=== PATIENT | female | born 2000 | race Hispanic/Latino ===

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

== ENCOUNTER 2021-11-15 07:40 | Inpatient (IN) | payer OTHER, BC ==
[~2021-11-15] VITALS: Ht 160 cm; Wt 97.1 kg
[~2021-11-15 07:40] MED LIST changes: +HYDROCODON-ACE1 EA11 PO; +ONDANSETRON ODT8 MG PO
--- NOTE | 2021-11-15 12:49 | PR ---
[facility] [address] [place], [place] [address] Signed Progress Notes IP Datetime Report Generated by CPN: 11/15/2021 12:49 PROGRESS NOTES: [id number] Impression: Reassuring Heart Rate Procedures: Sterile Vag Exam Plan: Augmentation VITAL SIGNS: [id number] Vital Signs: Reviewed; Within Normal Limits EXAM: [id number] Dilatation: 1.0 Effacement: 25 Station: Unable to assess presenting part, high Contractions: occ MEMBRANES: [id number] Amniotic Fluid Color: Clear Comments: Pt still very comfortable and feels occ pressure. Cervix cannot be palpated as presenting part is very high. U/S repeated and fetus is VTX. Will begin pit augment now as she has had SROM for a little over 6 hrs at this time w/o labor. Her exam is very concerning given the extremely high station of the VTX, however. It is unclear whether labor will allow for vaginal delivery. FETUS A: [id number] FHR Baseline: 140 Variability: Moderate 6-25bpm Accelerations: 15X15 Decelerations: None FHR Category: Category I Presentation: Vertex Comments on Fetus A: No evidence of metabolic acidosis FETUS B: [id number] Signing Physician: Cher Marte MD Copies: ~ *Electronically Signed* 11/15/21 1249 CHER MARTE MD PATIENT NAME: DARSHAN WALLRIO PROGRESS NOTE DATE OF : 01 PHYSICIAN: CHER MARTE MD RPT #: [id number] REPORT IS CONFIDENTIAL AND NOT TO BE RELEASED WITHOUT AUTHORIZATION
--- NOTE | 2021-11-15 15:49 | PR ---
[facility] [address] [facility] [place] [place] [address] Signed Progress Notes IP Datetime Report Generated by CPN: 11/15/2021 15:48 PROGRESS NOTES: [id number] Impression: Reassuring Heart Rate Procedures: Sterile Vag Exam Plan: Continue Present Management VITAL SIGNS: [id number] Vital Signs: Reviewed; Within Normal Limits EXAM: [id number] Dilatation: 1.0 Effacement: 50 Station: -3 Contractions: occ MEMBRANES: [id number] Amniotic Fluid Color: Clear Comments: Becoming uncomfortable. Cervix can now be evaluated but baby still very high. Will continue. FETUS A: [id number] FHR Baseline: 140 Variability: Moderate 6-25bpm Accelerations: 15X15 Decelerations: None FHR Category: Category I Presentation: Vertex Comments on Fetus A: No evidence of metabolic acidosis FETUS B: [id number] Signing Physician: Cher Marte MD Copies: ~ *Electronically Signed* 11/15/21 1548 CHER MARTE MD PATIENT NAME: DARSHAN WALL NEY PROGRESS NOTE DATE OF : 01 PHYSICIAN: CHER MARTE MD RPT #: [id number] REPORT IS CONFIDENTIAL AND NOT TO BE RELEASED WITHOUT AUTHORIZATION
--- NOTE | 2021-11-15 19:52 | PR ---
[facility] [address] [facility] [place], [place] [address] Signed Progress Notes IP Datetime Report Generated by CPN: 11/15/2021 19:51 PROGRESS NOTES: [id number] Impression: Normal Progression of Labor Procedures: Intrauterine Pressure Catheter; Scalp Electrode Plan: Continue Present Management Other Plans: position changes VITAL SIGNS: [id number] Vital Signs: Reviewed; Within Normal Limits EXAM: [id number] Dilatation: 1.0 Effacement: 50 Station: -3 Contractions: occ MEMBRANES: [id number] Amniotic Fluid Color: Clear Comments: Slow progress. Will require very close observation of FHTs though last decel was with placement of the IUPC and FSE. Will dose pitocin according to her contraction pattern. FETUS A: [id number] FHR Baseline: 140 Variability: Moderate 6-25bpm Accelerations: 15X15 Decelerations: None FHR Category: Category I Presentation: Vertex Comments on Fetus A: No evidence of metabolic acidosis FETUS B: [id number] Signing Physician: Cher Marte MD Copies: ~ *Electronically Signed* 11/15/211950 CHER MARTE MD PATIENT NAME: DARSHAN WALL PROGRESS NOTE DATE OF : 01 PHYSICIAN: CHER MARTE MD RPT #: [id number] REPORT IS CONFIDENTIAL AND NOT TO BE RELEASED WITHOUT AUTHORIZATION
--- NOTE | 2021-11-15 20:09 | PR ---
[facility] [address] [place], [place] [address] Signed Progress Notes IP Datetime Report Generated by BULL: 11/15/2021 20:09 PROGRESS NOTES: [id number] Impression: Non-reassuring Heart Rate Procedures: Intrauterine Pressure Catheter; Scalp Electrode Other Procedures: stop pit Plan: Anesthesia Consult Other Plans: position changes VITAL SIGNS: N7563006 Vital Signs: Reviewed; Within Normal Limits EXAM: [id number] Dilatation: 2.0 Effacement: 80 Station: -3 Contractions: occ MEMBRANES: [id number] Amniotic Fluid Color: Clear Comments: Variability still present but with lates. She is sonu strongly with IUPC as well as very frequently. Will stop pit and continue close observation. She desires an epidural and will place this as well. Continued observation of status is needed. FETUS A: [id number] FHR Baseline: 140 Variability: Moderate 6-25bpm Accelerations: 15X15 Decelerations: None FHR Category: Category I Presentation: Vertex Comments on Fetus A: No evidence of metabolic acidosis FETUS B: [id number] Signing Physician: Cher Marte MD Copies: ~ *Electronically Signed* 11/15/212008 CHER MARTE MD PATIENT NAME: DARSHAN WALL PROGRESS NOTE DATE OF : 01 PHYSICIAN: CHER MARTE MD RPT #: [id number] REPORT IS CONFIDENTIAL AND NOT TO BE RELEASED WITHOUT AUTHORIZATION
--- NOTE | 2021-11-15 20:28 | PR ---
[facility] [address] [facility] [place], [place] [address] Signed Progress Notes IP Datetime Report Generated by BULL: 11/15/2021 20:28 PROGRESS NOTES: [id number] Impression: Reassuring Heart Rate Procedures: Epidural Placement Other Procedures: stop pit Plan: Anesthesia Consult Other Plans: position changes VITAL SIGNS: I6160209 Vital Signs: Reviewed; Within Normal Limits EXAM: R0469945 Dilatation: 2.0 Effacement: 80 Station: -3 Contractions: occ MEMBRANES: [id number] Amniotic Fluid Color: Clear Comments: status much improved after stopping pit augment and dose of sub Q terb. Will place epidural now. After recovery, will restart pit at beginning to see how the baby will tolerate labor. FETUS A: [id number] FHR Baseline: 140 Variability: Moderate 6-25bpm Accelerations: 15X15 Decelerations: None FHR Category: Category I Presentation: Vertex Comments on Fetus A: No evidence of metabolic acidosis FETUS B: [id number] Signing Physician: Cher Marte MD Copies: ~ *Electronically Signed* 11/15/212027 CHER MARTE MD PATIENT NAME: DARSHAN WALL PROGRESS NOTE DATE OF : 01 PHYSICIAN: CHER MARTE MD RPT #: [id number] REPORT IS CONFIDENTIAL AND NOT TO BE RELEASED WITHOUT AUTHORIZATION
--- NOTE | 2021-11-15 21:15 | PR ---
[facility] [address] [facility] [place], [place] [address] Signed Progress Notes IP Datetime Report Generated by CPN: 11/15/2021 21:14 PROGRESS NOTES: [id number] Impression: Reassuring Heart Rate Procedures: Sterile Vag Exam Other Procedures: stop pit Plan: Continue Present Management Other Plans: position changes VITAL SIGNS: Y0471564 Vital Signs: Reviewed; Within Normal Limits EXAM: R1156053 Dilatation: 2.0 Effacement: 80 Station: -3 Contractions: occ MEMBRANES: [id number] Amniotic Fluid Color: Clear Comments: Comfortable after epidural. status improved after stopping pit and subq terb. Contraction pattern appears adequate currently but augmentation may be needed. Will continue close observation. FETUS A: [id number] FHR Baseline: 140 Variability: Moderate 6-25bpm Accelerations: 15X15 Decelerations: None FHR Category: Category I Presentation: Vertex Comments on Fetus A: No evidence of metabolic acidosis FETUS B: [id number] Signing Physician: Cher Marte MD Copies: ~ *Electronically Signed* 11/15/212113 CHER MARTE MD PATIENT NAME: DARSHAN WALL PROGRESS NOTE DATE OF : 01 PHYSICIAN: CHER MARTE MD RPT #: [id number] REPORT IS CONFIDENTIAL AND NOT TO BE RELEASED WITHOUT AUTHORIZATION
--- NOTE | 2021-11-16 05:56 | PR ---
[facility] [address] [place], [place] [address] Signed Progress Notes IP Datetime Report Generated by BULL: 11/16/2021 05:56 PROGRESS NOTES: [id number] Impression: Non-reassuring Heart Rate Procedures: Sterile Vag Exam Other Procedures: stop pit Plan: Continue Present Management Other Plans: stop pit, subq terb VITAL SIGNS: Y4434599 Vital Signs: Reviewed; Within Normal Limits EXAM: [id number] Dilatation: 4.0 Effacement: 90 Station: -2 Contractions: occ MEMBRANES: T2122506 Amniotic Fluid Color: Clear Comments: Has made slow progress but has been having recurrent lates without response to changes in position. Pit now stopped (though has been only at 4) and will give subq terb to allow for recovery. If this is not sufficient, will proceed with C/S. FETUS A: [id number] FHR Baseline: 140 Variability: Moderate 6-25bpm Accelerations: 15X15 Decelerations: None FHR Category: Category I Presentation: Vertex Comments on Fetus A: No evidence of metabolic acidosis FETUS B: [id number] Signing Physician: Cher Marte MD Copies: ~ *Electronically Signed* 11/16/21 0556 CHER MARTE MD PATIENT NAME: DARSHAN WALL PROGRESS NOTE DATE OF : 01 PHYSICIAN: CHER MARTE MD RPT #: [id number] REPORT IS CONFIDENTIAL AND NOT TO BE RELEASED WITHOUT AUTHORIZATION
--- NOTE | 2021-11-16 06:59 | PR ---
[facility] [address] [place], [place] [address] Signed Progress Notes IP Datetime Report Generated by CPN: 11/16/2021 06:59 PROGRESS NOTES: [id number] Impression: Non-reassuring Heart Rate Procedures: Sterile Vag Exam Other Procedures: stop pit Plan: Deliver- Section Other Plans: stop pit, subq terb Informed Consent Obtain: Section Delivery VITAL SIGNS: [id number] Vital Signs: Reviewed; Within Normal Limits EXAM: [id number] Dilatation: 4.0 Effacement: 90 Station: -2 Contractions: occ MEMBRANES: [id number] Amniotic Fluid Color: Clear Comments: She has continued to have recurrent decels with her contractions. She is now off pit and has received terb and again has had decels. I am unable to develop an adequate contraction pattern to bring on a vaginal delivery. I feel is indicated at this time. PARQ done for C/S. FETUS A: [id number] FHR Baseline: 140 Variability: Moderate 6-25bpm Accelerations: 15X15 Decelerations: None FHR Category: Category I Presentation: Vertex Comments on Fetus A: No evidence of metabolic acidosis FETUS B: [id number] Signing Physician: Cher Marte MD Copies: ~ *Electronically Signed* 11/16/21 0659 CHER MARTE MD PATIENT NAME: DARSHAN WALLRIO PROGRESS NOTE DATE OF : 01 PHYSICIAN: CHER MARTE MD RPT #: [id number] REPORT IS CONFIDENTIAL AND NOT TO BE RELEASED WITHOUT AUTHORIZATION
--- NOTE | 2021-11-16 08:44 | NUR ---
11/16/21 0844 Naty Ross 0834: PT IS BROUGHT TO ROOM 105 FOR RECOVERY. DAD AND BABY IN THE ROOM UPON ARRIVAL. PT IS AWAKE WITH NO COMPLAINTS OF PAIN OR NAUSEA.
--- NOTE | 2021-11-17 07:46 | PR ---
[facility] [address] [facility] [place], [place] [address] Signed PP Progress Notes Datetime Report Generated by CPLori: 11/17/2021 07:45 SUBJECTIVE: [id number] Pain: Within Normal Limits Nausea/Vomiting: Denies Flatus: No Vital Signs: [id number] Vital Signs: Reviewed; Within Normal Limits Cardiovascular: Normal Respiratory: Normal Abdomen/Uterus: Abnormal Lochia: Normal Vulva/Perineum: Not Done Breasts: Not Done CVA Tenderness: Not Done Extremities: Normal Incision: Normal Progress: Abnormal Exam Comments: Abdomen with active BS. Fundus firm, NT @ U-1. H/H 8.6/26.5, WBC 7.5, plat 131k IMPRESSION/PLAN/PROCEDURES: [id number] Impression: Normal Progression; Difficulties Other Impression: anemia Other Plans: ambulate, shower Progress Notes: Doing well. Will increase ambulation and work on breast feeding. Signing Physician: Cher Marte MD Copies: ~ *Electronically Signed* 11/17/21 0745 CHER MARTE MD PATIENT NAME: NIR WALLOSIEL BREWSTER PROGRESS NOTE DATE OF : 01 PHYSICIAN: CHER MARTE MD RPT #: [id number] REPORT IS CONFIDENTIAL AND NOT TO BE RELEASED WITHOUT AUTHORIZATION
--- NOTE | 2021-11-17 17:49 | OR ---
[facility] [address] [place], [place] [address] Signed DATE OF OPERATION: 11/16/2021 SURGEON: Cher Marte MD PET FOOD DEBONER: Tammy Reddy D.O. PREOPERATIVE DIAGNOSES: 1. Term . 2. Premature rupture of the membranes. 3. Prolonged rupture of the membranes. 4. Non-reassuring heart rate. 5. Persistent posterior presentation. 6. Placental abruption. POSTOPERATIVE DIAGNOSES: 1. Term . 2. Premature rupture of the membranes. 3. Prolonged rupture of the membranes. 4. Non-reassuring heart rate. 5. Persistent posterior presentation. 6. Placental abruption. 7. Delivered. PROCEDURE: Primary section with low segment transverse uterine incision. ANESTHESIA: Epidural. ESTIMATED BLOOD LOSS: 600 mL. DRAINS: Waller catheter. INDICATIONS AND FINDINGS: The patient is a 21-year-old female, 2, para 0, SAB 1, who presented at 39 weeks with rupture of membranes on 11/15/21. She did not develop any labor after rupture had occurred over 6 hours and Pitocin augmentation was begun. With the Electronically Signed By: CHER MARTE MD 11/17/21 1749 PATIENT NAME: DARSHAN WALL OPERATIVE REPORT DATE OF : 01 REPORT #: [id number] PHYSICIAN: CHER MARTE MD PCP: MATT PIMENTEL PA-C REPORT IS CONFIDENTIAL AND NOT TO BE RELEASED WITHOUT AUTHORIZATION [facility] [address] [facility] [place], [place] [address] Signed development of more regular contractions, some cervical change did occur, but she also had episodes of recurrent late decelerations as well as variable decelerations. This required Pitocin to be discontinued twice as well as the needing subcu terbutaline twice to decrease her contractions and allow for resuscitation. After she had been ruptured for over 24 hours, she had developed recurrent late decelerations, which were poorly responsive to any position changes. The dose was again discontinued and she did receive subQ terb with improvement in status, but it was felt that as she had made minimal change from 1 to 4 cm over the previous 24 hrs that delivery was not imminent and as the fetus did not tolerate contractions, it was unlikely she would be successful in having a vaginal delivery. section was recommended. She was consented and taken to the operating room where she was delivered of a little girl via lower segment transverse uterine incision from the ROP position with Apgars 2/7 and 9. There was a tight nuchal cord at delivery. On entry to the uterus there was a clot as well as meconium. She had a probable abruption. The uterus, tubes, and ovaries were otherwise normal. DESCRIPTION OF PROCEDURE: The patient was prepped and draped in the supine position. A Pfannenstiel skin incision was made and carried down through the fascia. The incision was extended laterally. The inferior and superior fascial flaps were then created. The muscles were bluntly divided and the peritoneum opened bluntly and the incision extended. The Hardy retractor was placed. The uterine incision was made at the upper aspect of the peritoneal reflection. The baby was delivered with the above findings and handed off to the pediatric staff in attendance. The placenta was removed manually and the uterus explored with a lap tape assuring no remaining fragments. The edges of the incision were identified and the uterus was closed in 2 layers using 0-Monocryl. The first layer was a running locking stitch and the second was a vertical imbricating stitch. Bleeding points on the peritoneum were controlled with cautery. The abdomen was then irrigated and inspected and good hemostasis was noted. The Hardy retractor was removed. The peritoneum identified. The peritoneum was closed with running suture of 3-0 Vicryl. The muscles were brought together with interrupted sutures of 0-Vicryl. Bleeding points were controlled on the muscle with cautery. There was a raw area on the inferior fascial flap at the very base, and this was controlled with cautery as well. Because of this raw area, Laureen was placed on the muscles to aid in hemostasis. The fascia was closed from each angle to the midline with a running suture of 0-Vicryl. The subQ space was irrigated and bleeding points were controlled with cautery. The subQ space was closed with interrupted sutures of 3-0 Vicryl. The skin was closed with alfonso. All sponge and needle counts were correct. She tolerated the procedure well and was taken to the recovery room in good condition. Electronically Signed By: CHER MARTE MD 11/17/21 6574 PATIENT NAME: DARSHAN WALL OPERATIVE REPORT DATE OF : 01 REPORT #: [id number] PHYSICIAN: CHER MARTE MD PCP: MATT PIMENTEL PA-C REPORT IS CONFIDENTIAL AND NOT TO BE RELEASED WITHOUT AUTHORIZATION [address] [address] Signed Cher Marte MD PJW/MODL /[id number] cc: Tammy Reddy DO Copies: TAMMY REDDY DO ~ Electronically Signed By: CHER MARTE MD 11/17/21 1749 PATIENT NAME: DARSHAN WALL NEY OPERATIVE REPORT DATE OF : 01 REPORT #: [id number] PHYSICIAN: CHER MARTE MD PCP: MATT PIMENTEL PA-C REPORT IS CONFIDENTIAL AND NOT TO BE RELEASED WITHOUT AUTHORIZATION
--- NOTE | 2021-11-18 08:16 | PR ---
[facility] [address] [facility] [place], [place] [address] Signed PP Progress Notes Datetime Report Generated by CPN: 11/18/2021 08:16 SUBJECTIVE: [id number] Pain: Within Normal Limits Nausea/Vomiting: Denies Flatus: No Bowel Movement: Yes Vital Signs: [id number] Vital Signs: Reviewed; Within Normal Limits Cardiovascular: Not Done Respiratory: Not Done Abdomen/Uterus: Abnormal Lochia: Normal Vulva/Perineum: Not Done Breasts: Not Done CVA Tenderness: Not Done Extremities: Normal Incision: Normal Progress: Normal Exam Comments: Abdomen with active BS. Fundus firm, NT @ U-1. IMPRESSION/PLAN/PROCEDURES: [id number] Impression: Normal Progression Other Impression: anemia Plan: Remove [place]; Discharge Other Plans: ambulate, shower Procedures: None Progress Notes: Doing well. She is ready for discharge. Signing Physician: Cher Marte MD Copies: ~ *Electronically Signed* 11/18/21815 CHER MARTE MD PATIENT NAME: DARSHAN WALL PROGRESS NOTE DATE OF : 01 PHYSICIAN: CHER MARTE MD RPT #: [id number] REPORT IS CONFIDENTIAL AND NOT TO BE RELEASED WITHOUT AUTHORIZATION
== END 2021-11-18 13:43 | disposition home or self-care (01) | DRG 786 ==
LOC: FBCO 07:40 → FBC 08:15
PROVIDERS: ADMIT Obstetrics & Gynecology; ATTEND Obstetrics & Gynecology
PROC: 10H07YZ Insertion of Other Device into Products of Conception, Via Natural or Artificial Opening (ICD-10-PCS; 2021-11-16)
PROC: 3E033VJ Introduction of Other Hormone into Peripheral Vein, Percutaneous Approach (ICD-10-PCS; 2021-11-16)
PROC: 3E0R3BZ Introduction of Anesthetic Agent into Spinal Canal, Percutaneous Approach (ICD-10-PCS; 2021-11-16)
PROC: 00HU33Z Insertion of Infusion Device into Spinal Canal, Percutaneous Approach (ICD-10-PCS; 2021-11-16)
PROC: 10D00Z1 Extraction of Products of Conception, Low, Open Approach (ICD-10-PCS; principal; 2021-11-16 07:44)
DX: O42.02 Full-term premature rupture of membranes, onset of labor within 24 hours of rupture (principal); O45.93 Premature separation of placenta, unspecified, third trimester; O76 Abnormality in fetal heart rate and rhythm complicating labor and delivery; Z20.822 Contact with and (suspected) exposure to COVID-19; O90.81 Anemia of the puerperium; O64.0XX0 Obstructed labor due to incomplete rotation of fetal head, not applicable or unspecified; Z98.890 Other specified postprocedural states; Z87.2 Personal history of diseases of the skin and subcutaneous tissue; Z3A.39 39 weeks gestation of pregnancy; Z37.0 Single live birth; Z79.899 Other long term (current) drug therapy; O99.824 Streptococcus B carrier state complicating childbirth
CPT/HCPCS: 36415; 82803; 85027; 86850; 86900; 86901; 87502; A9270; C9803; J0456; J0690; J1644; J1885; J2274; J2405; J2540; J2590; J2765; J2795; J3010; J3105; J7121; U0003

== ENCOUNTER 2023-02-22 15:21 | Inpatient (IN) | payer OTHER, BC ==
[~2023-02-22] VITALS: Ht 152.4 cm; Wt 100.5 kg
--- NOTE | ~2023-02-22 | OR ---
[facility] [address] [place], [place] [address] Draft DATE OF OPERATION: 04/12/2023 SURGEON: Cher Marte MD FLATWORK IRONER: Marquis. PREOPERATIVE DIAGNOSIS: Term , previous section. POSTOPERATIVE DIAGNOSIS: Term , previous section, delivered. PROCEDURE: Repeat section with low segment transverse uterine incision. ANESTHESIA: Spinal. ESTIMATED BLOOD LOSS: 600 mL. DRAINS: Waller catheter. INDICATIONS AND FINDINGS: The patient is a 23-year-old female who was admitted at 39 weeks for repeat section. The close interval with her last delivery in October of last year. has otherwise been uncomplicated. She was delivered of a little boy via lower segment transverse uterine incision with Apgars of 8 and 9 and weight of 7 pounds 4 ounces. The lower segment was quite thin. There were multiple adhesions of the omentum to the anterior peritoneum as well as to the anterior wall of the uterus. PROCEDURE IN DETAIL: The patient was prepped and draped in the supine position. A Pfannenstiel skin incision was made through the prior one and this scar tissue was excised. The incision was carried down to the fascia. The incision was extended laterally. The inferior and superior fascial flaps were then created. The muscles were sharply divided and the peritoneum entered sharply and the incision extended sharply. Adhesions of the omentum to the anterior peritoneum on the anterior uterine wall were then divided using the PATIENT NAME: DARSHAN WALL NEY OPERATIVE REPORT DATE OF : 01 REPORT #: [id number] PHYSICIAN: CHER MARTE MD PCP: MATT PIMENTEL PA-C REPORT IS CONFIDENTIAL AND NOT TO BE RELEASED WITHOUT AUTHORIZATION [facility] [address] [place], [place] [address] Draft hand-held LigaSure device which is bipolar. Following this, after the lysis of adhesions the Hardy retractors could be placed. The uterine incision was made at the upper aspect of the peritoneal reflection. Clear fluid was noted on delivery. The baby was delivered with the above findings and handed out to the pediatric staff in attendance. The placenta was removed manually and the uterus explored with a lap tape assuring no remaining fragments. The edges of the incision were identified and the uterine wall was closed with two layers. The first layer was a running locking stitch of 0 Monocryl, the second was a horizontal imbricating stitch. This area was irrigated, inspected and good hemostasis was noted. Bleeding points on the peritoneum were controlled with cautery. The retractor was removed and the remaining adhesions of the omentum to the peritoneum were divided using the bipolar device. The peritoneum then appeared free. The peritoneum was then closed with a running suture of 3-0 Vicryl. The muscles were brought together with interrupted sutures of 0 Vicryl. Bleeding points were controlled with cautery. Laureen was sprinkled over the muscles to aid in hemostasis. The fascia was then closed from each angle to the midline with a running suture of 0 Vicryl. The subcu space was irrigated and bleeding points controlled with cautery. The remaining Laureen was sprinkled in the subcu space. The deep space was closed with interrupted sutures of 3-0 Vicryl. The skin incisions were closed with 4-0 Vicryl Rapid in a subcuticular manner, given her history of keloid. This was followed by Mastisol and Steri-Strips. Cord and tape were also applied. All sponge and needle counts were correct. The patient tolerated this well, was taken to the recovery room in good condition. MD BALWINDER Rowland/ALISL /[id number] Copies: ~ PATIENT NAME: DARSHAN WALL OPERATIVE REPORT DATE OF : 01 REPORT #: [id number] PHYSICIAN: CHER MARTE MD PCP: MATT PIMENTEL PA-C REPORT IS CONFIDENTIAL AND NOT TO BE RELEASED WITHOUT AUTHORIZATION
[2023-04-12 06:00] LABS: HEMATOCRIT 34.4 % (35.0-50.0); HEMOGLOBIN 11.2 g/dL (12.0-18.0); MCH 26.3 (27-36); MCHC 32.6 g/dl (30-36); MCV 80.6 fl (81-99); RBC 4.26 M/ul (4.3-5.7); RDW 16.1 (10.5-15.0)
[2023-04-12 06:39] LABS: ABO O; ANTIBODY SCREEN NEGATIVE; RH POSITIVE
[2023-04-12 06:42] LABS: AMPHETAMINES, URINE NEGATIVE (NEGATIVE); BARBITURATES, URINE NEGATIVE (NEGATIVE); BENZODIAZEPINE, URINE NEGATIVE (NEGATIVE); BUPRENORPHINE, URINE NEGATIVE (NEGATIVE); CANNABINOID, URINE NEGATIVE (NEGATIVE); COCAINE, URINE NEGATIVE (NEGATIVE); ECSTASY, URINE NEGATIVE (NEGATIVE); FENTANYL, URINE NEGATIVE (NEGATIVE); METHADONE, URINE NEGATIVE (NEGATIVE); OPIATES, URINE NEGATIVE (NEGATIVE); OXYCODONE, URINE NEGATIVE (NEGATIVE); PHENCYCLIDINE, URINE NEGATIVE (NEGATIVE)
[2023-04-12 09:31] VITALS: BP 134/74
--- NOTE | 2023-04-12 09:35 | NUR ---
04/12/23 0935 Eva Workman 0902 PT TO ROOM FROM OR. RESPIRATIONS EVEN AND UNLABORED. AND BABY IN ROOM. NO COMPLAINTS AT THIS TIME. 0920 PT HOLDING BABY, IN ROOM. NO COMPAINTS AT THIS TIME. ALERT AND AWAKE.
[2023-04-13 05:34] LABS: HEMATOCRIT 27.2 % (35.0-50.0); HEMOGLOBIN 8.8 g/dL (12.0-18.0); MCH 26.3 (27-36); MCHC 32.3 g/dl (30-36); MCV 81.2 fl (81-99); RBC 3.34 M/ul (4.3-5.7); RDW 15.9 (10.5-15.0)
--- NOTE | 2023-04-13 07:20 | PR ---
[facility] [address] [facility] [place], [place] [address] Signed PP Progress Notes Datetime Report Generated by CPN: 04/13/2023 07:20 SUBJECTIVE: [id number] Pain: Within Normal Limits Nausea/Vomiting: Denies Vital Signs: [id number] Vital Signs: Reviewed; Within Normal Limits Cardiovascular: Normal Respiratory: Normal Abdomen/Uterus: Abnormal Lochia: Normal Vulva/Perineum: Not Done Breasts: Not Done CVA Tenderness: Not Done Extremities: Normal Incision: Normal Progress: Abnormal Exam Comments: Abdomen with active BS. Fundus firm, NT @ U-1. H/H 8.8/27.2, WBC 9.4, plat 183k IMPRESSION/PLAN/PROCEDURES: [id number] Impression: Normal Progression Other Plans: ambulate, shower Procedures: None Progress Notes: Doing well. Will increase activity. Tolerating the anemia. Signing Physician: Cher Marte MD Copies: ~ *Electronically Signed* 04/13/23719 CHER MARTE MD PATIENT NAME: DARSHAN WALLRIO PROGRESS NOTE DATE OF : 01 PHYSICIAN: CHER MARTE MD RPT #: [id number] REPORT IS CONFIDENTIAL AND NOT TO BE RELEASED WITHOUT AUTHORIZATION
--- NOTE | 2023-04-14 08:11 | PR ---
[facility] [address] [place], [place] [address] Signed PP Progress Notes Datetime Report Generated by CPN: 04/14/2023 08:11 SUBJECTIVE: [id number] Pain: Within Normal Limits Nausea/Vomiting: Denies Vital Signs: [id number] Vital Signs: Reviewed; Within Normal Limits Cardiovascular: Not Done Respiratory: Not Done Abdomen/Uterus: Abnormal Lochia: Normal Vulva/Perineum: Not Done Breasts: Not Done CVA Tenderness: Not Done Extremities: Normal Incision: Normal Progress: Normal Exam Comments: Abdomen with active BS. Fundus firm, NT @ U-2. IMPRESSION/PLAN/PROCEDURES: [id number] Impression: Normal Progression Plan: Discharge Other Plans: ambulate, shower Procedures: None Progress Notes: Doing well. She is ready for D/C. Tolerating anemia well. Signing Physician: Cher Marte MD Copies: ~ *Electronically Signed* 04/14/23810 CHER MARTE MD PATIENT NAME: DARSHAN WALL PROGRESS NOTE DATE OF : 01 PHYSICIAN: CHER MARTE MD RPT #: [id number] REPORT IS CONFIDENTIAL AND NOT TO BE RELEASED WITHOUT AUTHORIZATION
== END 2023-04-14 12:38 | disposition home or self-care (01) | DRG 788 ==
LOC: FBC 04-12 05:10
PROVIDERS: ADMIT Obstetrics & Gynecology; ATTEND Obstetrics & Gynecology
PROC: 10D00Z1 Extraction of Products of Conception, Low, Open Approach (ICD-10-PCS; principal; 2023-04-12 07:30)
DX: O34.211 Maternal care for low transverse scar from previous cesarean delivery (principal); Z37.0 Single live birth; O99.824 Streptococcus B carrier state complicating childbirth; O99.892 Other specified diseases and conditions complicating childbirth; N73.6 Female pelvic peritoneal adhesions (postinfective); Z3A.39 39 weeks gestation of pregnancy
CPT/HCPCS: 01961; 36415; 76942; 80307; 85027; 86850; 86900; 86901; A9270; J0131; J0690; J1100; J1885; J2001; J2274; J2371; J2405; J2590; J2795; J3010; J7121